=== PATIENT | male | born 1980 | race Caucasian/White ===

== ENCOUNTER 2017-05-12 17:16 | Emergency (ER) | payer OTHER ==
[~2017-05-12] VITALS: Ht 182.9 cm; Wt 64.1 kg
[~2017-05-12 17:16] MED LIST: BUPR1FIL3 TD
[2017-05-12 17:18] VITALS: BP 107/75
[2017-05-12] MEDS ORDERED: PENICILLIN VK 500MG TABLET PO ONE (18:00)
[2017-05-12] MEDS ORDERED: IBUPROFEN 200 MG TABLET PO ONE (18:00)
[2017-05-12] MEDS ORDERED: IBUPROFEN 200 MG TABLET ONE (18:28)
== END 2017-05-12 18:31 | disposition home or self-care (01) ==
LOC: ED 18:10
DX: K04.7 Periapical abscess without sinus (principal); K21.9 Gastro-esophageal reflux disease without esophagitis; F17.200 Nicotine dependence, unspecified, uncomplicated
CPT/HCPCS: 99283